=== PATIENT | female | born 1980 | race Caucasian/White ===

== ENCOUNTER 2016-11-18 10:29 | Emergency (ER) | payer OTHER ==
[2016-11-18 12:04] VITALS: BP 117/75
--- NOTE | 2016-11-18 12:51 | UC ---
Throat Pain/Nasal Long HPI - HPI Summary HPI Summary: 3 days of worsening sinus teeth, facial eye and nasal pain had chills last night - History of Current Complaint Chief Complaint: UCRespiratory Stated Complaint: SINUS COMPLAINT Time Seen by Provider: 11/18/16 12:29 Hx Obtained From: Patient Hx Last Menstrual Period: Fall 2013 ?: Yes Onset/Duration: Sudden Onset, Lasting Days - 3, Still Present Severity: Moderate Pain Intensity: 8 Pain Scale Used: 0-10 Numeric Cough: None Associated Signs & Symptoms: Positive: Sinus Discomfort - Epiglottits Risk Factors Epiglottis Risk Factors: Negative - Allergies/Home Medications Allergies/Adverse Reactions: Allergies Allergy/AdvReac Type Severity Reaction Status Date / Time Sulfa Drugs Allergy Unknown Unknown Verified 11/18/16 12:04 Reaction Details Home Medications: Home Medications Without A Vit W/ Fe F [ Formula A-Free 9-0.267 mg] 1 tab PO DAILY 11/18/16 [History Confirmed 11/18/16] PMH/Surg Hx/FS Hx/Imm Hx Previously Healthy: Yes - Surgical History Surgical History: Yes Surgery Procedure, Year, and Place: c sect 03/13. t/a. nasal - Family History Known Family History: Positive: None Family History: no cardio vascular issues in family lineage - Social History Occupation: Employed Full-time Lives: With Family Alcohol Use: Occasionally Substance Use Type: None Smoking Status (MU): Former Smoker - Immunization History Most Recent Influenza Vaccination: 2232-2223 Most Recent Tetanus Shot: unknown Review of Systems Constitutional: Negative, Chills, Fatigue Skin: Negative Eyes: Negative ENT: Dental Pain, Ear Ache, Other - frontal and maxillary sinus pain Respiratory: Negative Cardiovascular: Negative Gastrointestinal: Negative Genitourinary: Negative Motor: Negative Neurovascular: Negative Musculoskeletal: Negative Neurological: Headache Psychological: Negative All Other Systems Reviewed And Are Negative: Yes Physical Exam Triage Information Reviewed: Yes Appearance: Well-Nourished, Ill-Appearing - mild-moderate, Pain Distress - mild Vital Signs: Initial Vital Signs Temp 99.2 F 11/18/16 11:58 Pulse 112 11/18/16 11:58 Resp 24 11/18/16 11:58 BP 117/75 11/18/16 11:58 Pulse Ox 97 11/18/16 11:58 Vital Signs Reviewed: Yes Eye Exam: Normal Eyes: Positive: Conjunctiva Clear ENT Exam: Normal ENT: Positive: Normal ENT inspection, Hearing grossly normal, Nasal congestion, TMs normal. Negative: Nasal drainage, Tonsillar swelling, Tonsillar exudate, Trismus, Muffled/hoarse voice Dental Exam: Other - upper teeth pain Neck exam: Normal Neck: Positive: Supple, Nontender, No Lymphadenopathy Respiratory Exam: Normal Respiratory: Positive: Chest non-tender, Lungs clear, Normal breath sounds, No respiratory distress, No accessory muscle use Cardiovascular Exam: Normal Cardiovascular: Positive: No Murmur, Pulses Normal, Brisk Capillary Refill Abdominal Exam: Other - fht 160 Musculoskeletal Exam: Normal Musculoskeletal: Positive: Strength Intact, ROM Intact, No Edema Neurological Exam: Normal Neurological: Positive: Alert, Muscle Tone Normal Psychological Exam: Normal Skin Exam: Normal Throat Pain/Nasal Course/Dx - Course Assessment/Plan: afrin and saline nasal spray, sudafed, amoxicillin, increase fluids follow with pcp and ob this week - Differential Dx/Diagnosis Differential Diagnosis/HQI/PQRI: Otitis Media, Pharyngitis, Sinusitis, URI Provider Diagnoses: Acute Rhinosinusitis, third trimester Discharge - Discharge Plan Condition: Stable Disposition: HOME Prescriptions: Amoxicillin (*) [Amoxicillin 875 MG (*)] 875 mg PO BID #20 tab Patient Education Materials: Pseudoephedrine (By mouth), Oxymetazoline (Into the nose), Sodium Chloride (Into the nose), Rhinosinusitis (ED), How to Use Nasal [place] (ED) Referrals: Graham Newby MD [Primary Care Provider] - 3 Days
== END 2016-11-18 12:58 | disposition home or self-care (01) ==
LOC: UCCORT 10:29
DX: O26.893 Other specified pregnancy related conditions, third trimester (principal); Z3A.00 Weeks of gestation of pregnancy not specified; J01.90 Acute sinusitis, unspecified; Z88.2 Allergy status to sulfonamides; Z87.891 Personal history of nicotine dependence
CPT/HCPCS: 99212; G0463

== ENCOUNTER 2019-11-09 16:41 | Emergency (ER) | payer OTHER ==
[2019-11-09 17:15] VITALS: BP 130/81
[2019-11-09 17:25] LABS: Influenza A Molecular POSITIVE (Negative)
--- NOTE | 2019-11-09 17:26 | UC ---
FLU HPI - HPI Summary HPI Summary: Pt presents with c/o sudden onset of fever, chills, body aches X 1 day. - History of Current Complaint Chief Complaint: UCRespiratory Stated Complaint: FEVER, CHILLS, COUGH Time Seen by Provider: 11/09/19 17:00 Hx Obtained From: Patient Hx Last Menstrual Period: no menses d/t hx of ablation ?: No Onset/Duration: Sudden Onset, Lasting Days, Still Present Severity Currently: Moderate Severity Initially: Moderate Pain Intensity: 0 Associated Signs & Symptoms: Positive: Fever, Myalgia, Nasal Congestion Related Hx: Possible Flu/Infectious Exposure - Risk Factors Influenza Risk Factors: Negative - Allergy/Home Medications Allergies/Adverse Reactions: Allergies Allergy/AdvReac Type Severity Reaction Status Date / Time Sulfa (Sulfonamide Allergy Unknown unknown Verified 11/09/19 17:13 Antibiotics) reaction Home Medications: Home Medications Oseltamivir CAP* [Tamiflu CAP*] 75 mg PO Q12H #10 cap 11/09/19 [Rx] PMH/Surg Hx/FS Hx/Imm Hx Previously Healthy: Yes - Surgical History Surgical History: Yes Surgery Procedure, Year, and Place: c sect 03/13. t/a. nasal. uterine ablation - Family History Known Family History: Positive: Cardiac Disease Family History: no cardio vascular issues in family lineage - Social History Occupation: Employed Full-time Lives: With Family Alcohol Use: Occasionally Substance Use Type: None Smoking Status (MU): Light Every Day Tobacco Smoker Type: Cigarettes Amount Used/How Often: 1/2 ppd Have You Smoked in the Last Year: Yes - Immunization History Most Recent Influenza Vaccination: 1207-0047 Most Recent Tetanus Shot: unknown Vaccination Up to Date: Yes Review of Systems All Other Systems Reviewed And Are Negative: Yes Constitutional: Positive: Fever, Chills Skin: Positive: Negative Eyes: Positive: Negative ENT: Positive: Sinus Congestion, Sinus Pain/Tenderness Respiratory: Positive: Negative Cardiovascular: Positive: Negative Gastrointestinal: Positive: Negative Genitourinary: Positive: Negative Motor: Positive: Negative Neurovascular: Positive: Negative Musculoskeletal: Positive: Myalgia Neurological/Mental Status: Positive: Headache Psychological: Positive: Negative Is Patient Immunocompromised?: No Physical Exam Triage Information Reviewed: Yes Appearance: Ill-Appearing Vital Signs: Initial Vital Signs Temp 98.6 F 11/09/19 17:13 Pulse 100 11/09/19 17:13 Resp 16 11/09/19 17:13 BP 130/81 11/09/19 17:13 Pulse Ox 98 11/09/19 17:13 Vital Signs Reviewed: Yes Eye Exam: Normal ENT: Positive: Nasal congestion, Sinus tenderness Dental Exam: Normal Neck exam: Normal Respiratory Exam: Normal Respiratory: Positive: No respiratory distress Cardiovascular Exam: Normal Cardiovascular: Positive: Tachycardia Musculoskeletal Exam: Normal Neurological Exam: Normal Psychological Exam: Normal Skin Exam: Normal Flu Course/Dx - Differential Dx/Diagnosis Differential Diagnosis/HQI/PQRI: Influenza, Upper Respiratory Infection Provider Diagnosis: Influenza A Discharge ED - Sign-Out/Discharge Documenting (check all that apply): Patient Departure All imaging exams completed and their final reports reviewed: No Studies - Discharge Plan Condition: Stable Disposition: HOME Prescriptions: Oseltamivir CAP* [Tamiflu CAP*] 75 mg PO Q12H #10 cap Patient Education Materials: Influenza (ED) Forms: *Work Release Referrals: Graham Newby MD [Primary Care Provider] - If Needed - Billing Disposition and Condition Condition: STABLE Disposition: Home
== END 2019-11-09 17:45 | disposition home or self-care (01) ==
LOC: UCCORT 16:41
DX: J10.1 Influenza due to other identified influenza virus with other respiratory manifestations (principal); Z88.2 Allergy status to sulfonamides; F17.210 Nicotine dependence, cigarettes, uncomplicated
CPT/HCPCS: 99212; G0463